=== PATIENT | female | born 1945 | race Caucasian/White ===

== ENCOUNTER → 2019-05-25 | Outpatient (CLI) | payer MEDICARE ==
[~2019-05-25] MED LIST: CALC1CAP8 PO; CHOL10003 PO; IPRA0.2S35 INH; LEVO50TA5 PO; LIOT5TAB11 PO; LORA10TA75 PO; MULT1TAB60 PO; TURM1POW PO
== END | disposition home or self-care (01) ==
LOC: STAR 13:32 → MERGE 13:32
PROVIDERS: ATTEND Orthopaedic Surgery
DX: Z01.818 Encounter for other preprocedural examination (principal); M18.11 Unilateral primary osteoarthritis of first carpometacarpal joint, right hand
CPT/HCPCS: 93005

== ENCOUNTER 2019-06-01 14:40 | Day surgery (SDC) | payer MEDICARE ==
[~2019-06-01] VITALS: Ht 165.1 cm; Wt 67.4 kg
[2019-06-01] MEDS ORDERED: LACTATED RINGERS 1,000 ML IV SCH (15:04)
[2019-06-01 15:05] VITALS: BP 120/61
[2019-06-01] MEDS ORDERED: FENTANYL PF 250 MCG/5ML ONE (15:21)
[2019-06-01] MEDS ORDERED: BACITRACIN 50,000 UNIT ONE (15:50)
[2019-06-01] MEDS ORDERED: BUPIVACAINE/PF 0.5% ONE (15:50)
[2019-06-01] MEDS ORDERED: HYDROmorphone 2 MG/ML, 1ML IVPush PRN (17:00)
[2019-06-01] MEDS ORDERED: ALBUTEROL/IPRATROPIUM 2.5MG/0.5MG, 3 ML NPPB PRN (17:00)
[2019-06-01] MEDS ORDERED: FENTANYL PF 100 MCG/2ML IV PRN (17:00)
[2019-06-01] MEDS ORDERED: hydrALAzine 20 MG/ML, 1ML IV PRN (17:00)
[2019-06-01] MEDS ORDERED: PROMETHAZINE 25 MG/ML, 1ML IV PRN (17:00)
[2019-06-01] MEDS ORDERED: METOPROLOL 1 MG/ML, 5ML IV PRN (17:00)
[2019-06-01] MEDS ORDERED: OXYcodone 5 MG/5 ML ORAL.SOL UDC PO PRN (17:00)
[2019-06-01] MEDS ORDERED: MIDAZOLAM 1 MG/ML, 2ML IV PRN (17:00)
[2019-06-01] MEDS ORDERED: ONDANSETRON 2MG/ML, 2ML ONE (17:14)
[2019-06-01] MEDS ORDERED: PROPOFOL 10 MG/ML, 20ML ONE (17:14)
[2019-06-01] MEDS ORDERED: CEFAZOLIN 1,000 MG ONE (17:14)
[2019-06-01] MEDS ORDERED: DEXAMETHASONE 4 MG/ML, 1ML ONE (17:14)
[2019-06-01] MEDS ORDERED: OXYcodone 5 MG/5 ML ORAL.SOL UDC ONE (17:31)
[2019-06-01] MEDS ORDERED: FENTANYL PF 100 MCG/2ML ONE (17:31)
== END 2019-06-01 18:38 | disposition home or self-care (01) ==
LOC: OR 14:40
PROVIDERS: ATTEND Orthopaedic Surgery
DX: M18.11 Unilateral primary osteoarthritis of first carpometacarpal joint, right hand (principal); E78.5 Hyperlipidemia, unspecified; G47.33 Obstructive sleep apnea (adult) (pediatric); F15.90 Other stimulant use, unspecified, uncomplicated; Z72.89 Other problems related to lifestyle; Z88.8 Allergy status to other drugs, medicaments and biological substances
CPT/HCPCS: 25447; 26480; 73140; 76000; C1713; J0690; J1100; J2405; J2704; J3010; J7120

== ENCOUNTER 2020-06-12 10:01 | Outpatient (CLI) | payer MEDICARE ==
[~2020-06-12 10:01] MED LIST changes: +MULT-449 PO; -MULT1TAB60 PO
[2020-06-12] MEDS ORDERED: GABA300C PO (10:27)
[2020-06-12] MEDS ORDERED: CALC-534 PO (10:27)
[2020-06-12] MEDS ORDERED: METH-640 PO (10:27)
== END 2020-06-12 23:59 | disposition home or self-care (01) ==
LOC: STAR 10:01
PROVIDERS: ATTEND Surgery
DX: Z01.812 Encounter for preprocedural laboratory examination (principal); Z20.828 Contact with and (suspected) exposure to other viral communicable diseases
CPT/HCPCS: 87635; 93005

== ENCOUNTER 2020-06-17 10:22 | Day surgery (SDC) | payer MEDICARE ==
[~2020-06-17] VITALS: Ht 162.6 cm; Wt 70.0 kg
[~2020-06-17 10:22] MED LIST changes: +CALC-534 PO; +CEFAZOLIN 1,000 MG ONE; +DEXAMETHASONE 4 MG/ML, 1ML ONE; +GABA300C PO; +METH750T2 PO; +ONDANSETRON 2MG/ML, 2ML ONE; +PROPOFOL 10 MG/ML, 20ML ONE
[2020-06-17] MEDS ORDERED: CHLORHEXIDINE 15 ML UDC MM STA (10:32)
[2020-06-17] MEDS ORDERED: CHLORHEXIDINE 15 ML UDC ONE (10:36)
[2020-06-17 10:50] VITALS: BP 136/69
[2020-06-17] MEDS ORDERED: LACTATED RINGERS 1,000 ML IV SCH (11:00)
[2020-06-17] MEDS ORDERED: ISOSULFAN BLUE 10 MG/ML, 5ML IV ONE (12:19)
[2020-06-17] MEDS ORDERED: BUPIVACAINE/PF 0.25% ONE (12:19)
[2020-06-17] MEDS ORDERED: FENTANYL PF 250 MCG/5ML ONE (13:21)
[2020-06-17] MEDS ORDERED: hydrALAzine 20 MG/ML, 1ML IV PRN (13:30)
[2020-06-17] MEDS ORDERED: ACETAMINOPHEN 325 MG TABLET PO PRN (13:30)
[2020-06-17] MEDS ORDERED: FENTANYL PF 100 MCG/2ML IV PRN (13:30)
[2020-06-17] MEDS ORDERED: LABETALOL 5MG/ML, 20ML IV PRN (13:30)
[2020-06-17] MEDS ORDERED: OXYcodone 5 MG/5 ML ORAL.SOL UDC PO PRN (13:30)
[2020-06-17] MEDS ORDERED: ONDANSETRON 2MG/ML, 2ML IVPush PRN (13:30)
[2020-06-17] MEDS ORDERED: HYDROmorphone 1 MG/ML, 1ML INJ IVPush PRN (13:30)
[2020-06-17] MEDS ORDERED: FENTANYL PF 100 MCG/2ML ONE (14:28)
[2020-06-17] MEDS ORDERED: ACETAMINOPHEN 650 MG/20.3 ML UDC ONE (14:28)
[2020-06-17] MEDS ORDERED: OXYcodone 5 MG/5 ML ORAL.SOL UDC ONE (14:29)
== END 2020-06-17 16:15 | disposition home or self-care (01) ==
LOC: OUT 10:22 → EDSTATUS 15:00 → OUT 16:15
PROVIDERS: ATTEND Surgery
DX: C50.411 Malignant neoplasm of upper-outer quadrant of right female breast (principal); C77.3 Secondary and unspecified malignant neoplasm of axilla and upper limb lymph nodes; E03.9 Hypothyroidism, unspecified; F32.9 Major depressive disorder, single episode, unspecified; Z17.0 Estrogen receptor positive status [ER+]; Z79.890 Hormone replacement therapy; Z79.899 Other long term (current) drug therapy; Z98.1 Arthrodesis status; Z98.890 Other specified postprocedural states; Z80.3 Family history of malignant neoplasm of breast; Z80.0 Family history of malignant neoplasm of digestive organs; Z82.49 Family history of ischemic heart disease and other diseases of the circulatory system; Z82.3 Family history of stroke
CPT/HCPCS: 19120; 38525; 38792; 76098; 88305; 88307; 88342; A9541; J0690; J1100; J2405; J2704; J3010

== ENCOUNTER → 2020-07-15 | Outpatient (CLI) | payer MEDICARE ==
[~2020-07-15] MED LIST changes: -CEFAZOLIN 1,000 MG ONE; -DEXAMETHASONE 4 MG/ML, 1ML ONE; -ONDANSETRON 2MG/ML, 2ML ONE; -PROPOFOL 10 MG/ML, 20ML ONE
== END | disposition home or self-care (01) ==
LOC: ROC 09:07
PROVIDERS: ATTEND Radiology Radiation Oncology
DX: C50.211 Malignant neoplasm of upper-inner quadrant of right female breast (principal); C77.3 Secondary and unspecified malignant neoplasm of axilla and upper limb lymph nodes; E03.9 Hypothyroidism, unspecified; F32.9 Major depressive disorder, single episode, unspecified; Z17.0 Estrogen receptor positive status [ER+]; Z79.899 Other long term (current) drug therapy
CPT/HCPCS: 99214; G0463

== ENCOUNTER → 2020-10-28 | Outpatient (CLI) | payer MEDICARE ==
[~2020-10-28] MED LIST changes: +METH-640 PO; -METH750T2 PO
== END | disposition home or self-care (01) ==
LOC: ROC 07:59
PROVIDERS: ATTEND Radiology Radiation Oncology
DX: C50.211 Malignant neoplasm of upper-inner quadrant of right female breast (principal); Z17.0 Estrogen receptor positive status [ER+]
CPT/HCPCS: 99212; G0463

== ENCOUNTER 2021-01-10 08:17 | Outpatient (CLI) | payer MEDICARE | END 2021-01-10 23:59 | disposition home or self-care (01) | LOC: ROC 08:17 | PROVIDERS: ATTEND Radiology Radiation Oncology | DX: Z08 Encounter for follow-up examination after completed treatment for malignant neoplasm (principal); Z85.3 Personal history of malignant neoplasm of breast; Z17.0 Estrogen receptor positive status [ER+] | CPT/HCPCS: 99212; G0463 ==